=== PATIENT | male | born 1975 | race Caucasian/White ===

== ENCOUNTER 2017-01-16 17:37 | Inpatient (IN) | payer MEDICAID, OTHER ==
--- NOTE | 2017-01-16 19:37 | C.PDOC ---
History Of Present Illness Patient presents to the ER for detox of oxycodon. Patient admits last use was a couple of hours ago. Denies any physical complaints at this time. Time Seen by Provider: 01/16/17 19:37 Chief Complaint (Nursing): Substance Abuse History Per: Patient History/Exam Limitations: no limitations Onset/Duration Of Symptoms: Hrs Modifying Factor(s): Narcotics Past Medical History Reviewed: Historical Data, Nursing Documentation, Vital Signs Vital Signs: Last Vital Signs Temp 97.4 F L 01/16/17 17:49 Pulse 72 01/16/17 20:34 Resp 20 01/16/17 20:34 BP 104/63 01/16/17 20:34 Pulse Ox 96 01/16/17 20:34 - Medical History PMH: Anxiety, Depression Family History: States: No Known Family Hx - Social History Hx Alcohol Use: No Hx Substance Use: Yes Review Of Systems Constitutional: Negative for: Fever, Chills Cardiovascular: Negative for: Palpitations Respiratory: Negative for: Shortness of Breath Gastrointestinal: Negative for: Nausea, Vomiting, Abdominal Pain, Diarrhea Physical Exam - Physical Exam Appears: Non-toxic Skin: Warm, Dry Oral Mucosa: Moist Chest: Symmetrical Cardiovascular: Rhythm Regular Respiratory: No Rales, No Rhonchi, No Wheezing Gastrointestinal/Abdominal: Soft, No Tenderness Neurological/Psych: Oriented x3 ED Course And Treatment - Laboratory Results Result Diagrams: 01/16/17 20:06 01/16/17 20:06 O2 Sat by Pulse Oximetry: 96 (Room air) Pulse Ox Interpretation: Normal Progress Note: Blood work and urinalysis ordered. Disposition Discussed With : Agnes May Comment: accepted the pt on his service and took over the care at 10PM Counseled Patient/Family Regarding: Studies Performed, Diagnosis - Disposition Disposition: HOSPITALIZED Disposition Time: 19:37 Condition: FAIR - POA Present On Arrival: None - Clinical Impression Clinical Impression: Drug abuse, Drug dependence - Scribe Statement The provider has reviewed the documentation as recorded by the Scribrussel Jang All medical record entries made by the Scribe were at my direction and personally dictated by me. I have reviewed the chart and agree that the record accurately reflects my personal performance of the history, physical exam, medical decision making, and the department course for this patient. I have also personally directed, reviewed, and agree with the discharge instructions and disposition. Decision To Admit - Pt Status Changed To: Hospital Disposition Of: Inpatient - Admit Certification Admit to Inpatient:: After my assessment, the patient will require hospitalization for at least two midnights. This is because of the severity of symptoms shown, intensity of services needed, and/or the medical risk in this patient being treated as an outpatient. - InPatient: Physician Admission Certification: I certify that this patient requires 2 or more midnights of care for the following reason:: After my assessment, the patient will require hospitalization for at least two midnights. This is because of the severity of symptoms shown, intensity of services needed, and/or the medical risk in this patient being treated as an outpatient. - . Bed Request Type: Detox Admitting Physician: Agnes May Patient Diagnosis: Drug abuse, Drug dependence
[2017-01-16 20:09] LABS: BASO % 0.5 % (0.0-2.0); EOS # 0.1 K/uL (0.0-0.7); EOS % 2.4 % (0.0-4.0); HEMATOCRIT 35.3 % (35.0-51.0); LYMPH # 2.4 K/uL (1.0-4.3); LYMPH % 47.1 % (20.0-40.0); MEAN CELL VOLUME 90.9 fL (80.0-94.0); MEAN CORPUSCULAR HEMOGLOBIN 29.9 pg (27.0-31.0); MEAN CORPUSCULAR HGB CONC 32.9 g/dL (33.0-37.0); MEAN PLATELET VOLUME 9.9 fL (7.2-11.7); MONO # 0.5 K/uL (0.0-0.8); MONO % 9.1 % (0.0-10.0); RED CELL DISTRIBUTION WIDTH 13.8 % (11.5-14.5)
[2017-01-16 20:13] LABS: RBC URINE 1 /hpf (0-3); URINE BILIRUBIN NEGATIVE (NEGATIVE); URINE BLOOD NEGATIVE (NEGATIVE); URINE GLUCOSE (UA) NORMAL (Normal); URINE KETONE NEGATIVE (NEGATIVE); URINE LEUKOCYTE ESTERASE NEG Leu/uL (Negative); URINE PROTEIN NEGATIVE (NEGATIVE); WBC URINE 1 /hpf (0-5)
[2017-01-16 20:14] LABS: CHLORIDE 94 mmol/L (98-107); POTASSIUM 4.2 mmol/L (3.6-5.2); SODIUM 138 mmol/L (132-148)
[2017-01-16 20:16] LABS: ALB/GLOB RATIO 1.4 (1.0-2.1); ALKALINE PHOSPHATASE 70 U/L (38-126); AST/SGOT 26 U/L (17-59); BILIRUBIN,TOTAL 0.1 mg/dL (0.2-1.3); CARBON DIOXIDE 32 mmol/L (22-30); GFR AFRICAN-AMERICAN > 60; TOTAL PROTEIN 6.6 g/dL (6.3-8.3); URINE COLOR YELLOW (YELLOW)
[2017-01-16 20:17] LABS: ALCOHOL SERUM < 10 mg/dl (0-10); ALT/SGPT 25 U/L (21-72); BLOOD UREA NITROGEN 13 mg/dL (9-20); CALCIUM 8.3 mg/dl (8.6-10.4); GLUCOSE,RANDOM 84 mg/dL (75-110)
[2017-01-17] MEDS ORDERED: Aluminum Hydroxide/Magnesium Hydroxide Susp (30 mL) PO PRN (00:13)
[2017-01-17] MEDS ORDERED: Buprenorphine Hydrochloride 2 mg SL ONE ×2 (10:10→11:15)
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
[2017-01-18] MEDS ORDERED: Buprenorphine Hydrochloride 2 mg SL SCH ×2 (12:00)
[2017-01-18] MEDS: Buprenorphine Hydrochloride 2 mg SL SCH (12:25)
--- NOTE | 2017-01-18 15:16 | PCM.PYCHPN ---
Psychiatric Progress Note - Psychiatric Progress Note Patient seen today, length of contact: 17 min Patient Chief Complaint: "i was withdrawing last night" Problems Identified/Issues Discussed: The pt is seen, chart reviewed, case discussed with staff. The pt is compliant with medications and reports no side-effects. Symptoms are improving but needs more time to stabilize. After care discussed, support and psychoeducation given. Wants to resume his zoloft; will use 50 mg x2 days, and then 100 mg Seroquel added for insomnia, anxiety, irritability Medication Change: Yes (zoloft and seroquel, detox changes daily) Medical Record Reviewed: Yes Mental Status Examination - Cognitive Function Orientation: Person, Place, Situation, Time Memory: Intact Attention: WNL Concentration: Poor Association: WNL Fund of Knowledge: WNL - Mood Mood: Depressed, Anxious - Affect Affect: Constricted, Depressed - Speech Speech: Appropriate - Formal Thought Process Formal Thought Process: No Impairment - Suicidal Ideation Suicidal Ideation: No - Homicidal Ideation Homicidal Ideation: No Goal/Treatment Plan - Goal/Treatment Plan Need for Continued Stay: Discharge may exacerbated symptoms, Severe functional impairment Progress Toward Problem(s) and Goals/Treatment Plan: Opioid use disorder -Group therapy and individual therapy -Supportive therapy -[place] for abstinence Opioid withdrawal -subutex taper started -supportive therapy -PRN meds Depression: -Seroquel -Zoloft -CBT -Supportive tx Estimated Date of D/C: 01/21/17 - Smoking Cessation Smoking Cessation Initiated: Yes
[2017-01-19] MEDS: Buprenorphine Hydrochloride 2 mg SL SCH (09:08)
--- NOTE | 2017-01-19 13:07 | PCM.PYCHPN ---
Psychiatric Progress Note - Psychiatric Progress Note Patient seen today, length of contact: 16 min Patient Chief Complaint: "I need only seroquel at night" Problems Identified/Issues Discussed: The pt is seen, chart reviewed, case discussed with staff. The pt is compliant with medications and reports no side-effects. Symptoms are improving but needs more time to stabilize. After care discussed, support and psychoeducation given. Seroquel added for insomnia, anxiety, irritability Medication Change: Yes (detox changes daily) Medical Record Reviewed: Yes Mental Status Examination - Cognitive Function Orientation: Person, Place, Situation, Time Memory: Intact Attention: WNL Concentration: Poor Association: WNL Fund of Knowledge: WNL - Mood Mood: Depressed, Anxious - Affect Affect: Constricted, Depressed - Speech Speech: Appropriate - Formal Thought Process Formal Thought Process: No Impairment - Suicidal Ideation Suicidal Ideation: No - Homicidal Ideation Homicidal Ideation: No Goal/Treatment Plan - Goal/Treatment Plan Need for Continued Stay: Discharge may exacerbated symptoms, Severe functional impairment Progress Toward Problem(s) and Goals/Treatment Plan: Opioid use disorder -Group therapy and individual therapy -Supportive therapy -[place] for abstinence Opioid withdrawal -subutex taper started -supportive therapy -PRN meds Depression: -Seroquel -Zoloft -CBT -Supportive tx Estimated Date of D/C: 01/21/17
[2017-01-19] MEDS ORDERED: Vitamins A & D Oint UD Foilpak TOP PRN (17:04)
[2017-01-20] MEDS: Buprenorphine Hydrochloride 2 mg SL SCH (09:25)
--- NOTE | 2017-01-20 18:48 | PCM.PYCHPN ---
Psychiatric Progress Note - Psychiatric Progress Note Patient seen today, length of contact: 16 min Patient Chief Complaint: "I need less seroquel" Problems Identified/Issues Discussed: The pt is seen, chart reviewed, case discussed with staff. The pt is compliant with medications and reports no side-effects. Symptoms are improving but needs more time to stabilize. He now wants 50 mg seroquel bc 100 was "too much" After care discussed, support and psychoeducation given. [place] and CBT used briefly. Medication Change: Yes (detox changes daily) Medical Record Reviewed: Yes Mental Status Examination - Cognitive Function Orientation: Person, Place, Situation, Time Memory: Intact Attention: WNL Concentration: Poor Association: WNL Fund of Knowledge: WNL - Mood Mood: Depressed, Anxious - Affect Affect: Constricted, Depressed - Speech Speech: Appropriate - Formal Thought Process Formal Thought Process: No Impairment - Suicidal Ideation Suicidal Ideation: No - Homicidal Ideation Homicidal Ideation: No Goal/Treatment Plan - Goal/Treatment Plan Need for Continued Stay: Discharge may exacerbated symptoms, Severe functional impairment Progress Toward Problem(s) and Goals/Treatment Plan: Opioid use disorder -Group therapy and individual therapy -Supportive therapy -[place] for abstinence Opioid withdrawal -subutex taper started -supportive therapy -PRN meds Depression: -Seroquel -Zoloft -CBT -Supportive tx Estimated Date of D/C: 01/21/17
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
[2017-01-21] MEDS: Buprenorphine Hydrochloride 2 mg SL SCH (09:03)
[2017-01-21 09:07] VITALS: BP 124/78; PULSE 60; RESP 20; TEMP 97.3; O2SAT 99
== END 2017-01-21 09:45 | disposition home or self-care (01) | DRG 745 ==
LOC: C.ER 17:37 → C.7D 22:06
PROVIDERS: ADMIT Psychiatry & Neurology Psychiatry; ATTEND Psychiatry & Neurology Psychiatry
PROC: HZ2ZZZZ Detoxification Services for Substance Abuse Treatment (ICD-10-PCS; principal; 2017-01-17)
PROC: HZ59ZZZ Individual Psychotherapy for Substance Abuse Treatment, Supportive (ICD-10-PCS; 2017-01-17)
PROC: HZ46ZZZ Group Counseling for Substance Abuse Treatment, Psychoeducation (ICD-10-PCS; 2017-01-17)
DX: F11.23 Opioid dependence with withdrawal (principal); F32.9 Major depressive disorder, single episode, unspecified; F41.9 Anxiety disorder, unspecified; F14.90 Cocaine use, unspecified, uncomplicated; F17.210 Nicotine dependence, cigarettes, uncomplicated; G47.00 Insomnia, unspecified; F13.90 Sedative, hypnotic, or anxiolytic use, unspecified, uncomplicated